=== PATIENT | female | born 1950 | race African-American/Black ===

== ENCOUNTER → 2019-11-25 09:07 | Outpatient (CLI) | payer OTHER, SELFPAY ==
--- NOTE | ~2019-11-25 | XR_ITS ---
XR lumbar spine 6V w bending 11/25/2019 10:16 Indication: Radiculopathy. Low back pain. Procedure: 7 views lumbar spine Comparison: 12/20/2018 Findings: There is loss of disc height at all lumbar levels. There is moderate-severe multilevel face t hypertrophy with grade 1 degenerative spondylolisthesis at L3-4 and grade 2 spondylolisthesis at L4 -5. No acute fracture or traumatic malalignment. No significant alteration of alignment with flexion/ extension. There is atherosclerosis of the aorta. Pedicles intact. Sacral foramen are symmetric. Ther e are cholecystectomy clips. Impression: 1: Severe lumbar spondylosis. Reviewed, dictated and finalized at location A. 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
--- NOTE | ~2019-11-25 | XR_ITS ---
XR cervical spine min 6V 11/25/2019 10:16 Indication: Radiculopathy. Neck pain. Procedure: 6 view cervical spine Comparison: 11/19/2018 Findings: Straightening of cervical lordosis. Disc narrowing is present at C5-6 and C6-7. There is de generative anterolisthesis at C3-4 and C4-5. Prominent ventral osteophytes at multiple levels. There is severe multilevel facet hypertrophy. Lung apices are normal. Odontoid process within normal limits . Impression: 1: Moderate-severe cervical spondylosis. No significant change. Reviewed, dictated and finalized at location A. [employer]OR OF [employer]ERING Impression: 1: Moderate-severe cervical spondylosis. No significant change.
== END ==
PROVIDERS: Visit Provider Nurse Practitioner Family
DX: M47.26 Other spondylosis with radiculopathy, lumbar region (principal); M47.22 Other spondylosis with radiculopathy, cervical region
CPT/HCPCS: 72052; 72114

== ENCOUNTER 2022-05-16 17:14 | Emergency (ER) | payer MEDICARE, SELFPAY ==
[2022-05-16 17:45] VITALS: BP 135/70; PULSE 107; RESP 16; TEMP 36.6; O2SAT 100
--- NOTE | 2022-05-16 17:57 | ED.GENADULT ---
HPI - General Adult General Chief complaint: Unspecified Stated complaint: hip pain Time Seen by Provider: 05/16/22 17:57 History of Present Illness HPI narrative: eTa Thornton is a 71 yo female with PMH of breast CA, high resting heart rate, HTN, who was doing doing exercises today and has L sided shooting pains into buttocks. Pain is beneficial was not able to sleep last night even with trying to elevate her leg on a pillow; she has seen a chiropractor and has taken Flexeril in the past Related Data Home Medications Medication Instructions Recorded Confirmed albuterol sulfate 90 mcg/actuation 90 mcg inhalation PRN PRN 05/16/22 05/16/22 aerosol inhaler difficulty breathing cyclobenzaprine 10 mg tablet 10 mg PO DAILY 05/16/22 05/16/22 fluoxetine 10 mg capsule 10 mg PO DAILY 05/16/22 05/16/22 fluticasone propionate 50 50 mcg intranasal DAILY 05/16/22 05/16/22 mcg/actuation nasal spray,suspension hydrochlorothiazide 25 mg tablet 25 mg PO DAILY 05/16/22 05/16/22 letrozole 2.5 mg tablet 2.5 mg PO DAILY 05/16/22 05/16/22 Allergies Allergy/AdvReac Type Severity Reaction Status Date / Time Penicillins Allergy Intermediate Rash Verified 05/16/22 17:58 ciprofloxacin AdvReac Severe Other Verified 05/16/22 18:20 Review of Systems Review of Systems: CONSTITUTIONAL: Denies fever, chills, sweats. EYES: Denies visual changes, redness, discharge. ENT: Denies rhinorrhea, congestion, sore throat, otalgia. CARDIOVASCULAR: Denies chest pain, palpitations, edema. RESPIRATORY: Denies dyspnea, wheezing, cough GASTROINTESTINAL: Denies abdominal pain, nausea, vomiting, diarrhea. GENITOURINARY: Denies dysuria, hematuria, abnormal discharge SKIN: Denies rash or itching. NEUROLOGIC: Denies numbness, or focal weakness. PSYCHIATRIC: Denies anxiety or depression. Doing exercises today and is having shooting pain down left side of buttock PMFSH Past Medical History Medical History Acute bilateral low back pain without sciatica Arthritis of facet joint of lumbar spine Hyperlipidemia, unspecified Mild intermittent asthma, uncomplicated Spinal stenosis at L4-L5 level Family History Family History Sibling Family history of malignant neoplasm of breast in first degree relative Social History Social History (System 11/12/21 @ 12:38 by Madison Dumont) Smoking status: Light tobacco smoker Second hand tobacco smoke exposure: No Alcohol intake: never Comments At time of signature, I agree with nursing past medical, surgical, social and family history. There is no relevant family history pertinent to the presenting complaint. Exam Narrative: GENERAL: This is a well-nourished, well-developed patient, in mild distress. HEAD: normocephalic, atraumatic. EYES: PERRL. Sclera clear/white. Vision is grossly intact. EARS: External ears normal, auditory canals clear and without drainage, TMs normal without perforation. Hearing grossly intact. NOSE: External nose normal without nasal discharge, nares without redness, no rhinorrhea. THROAT: Mucous membranes moist, posterior pharynx NECK: Neck supple, non-tender CARDIOVASCULAR: Regular rate and rhythm without murmurs, gallops, or rubs. RESPIRATORY: Clear to auscultation. Breath sounds equal bilaterally. No wheezes, rales, or rhonchi. GASTROINTESTINAL: Abdomen soft, non-tender, SKIN: warm, intact with no suspicious lesions or rash, good texture and turgor. NEURO: awake, alert, and oriented to person, place and time. There were no obvious focal neurologic abnormalities. Steady gait EXTREMITIES: Normal range of motion. BACK: Nontender without deformity when moves through ROM has muscle spasm that seems to originate in the pirisformis on L Course Course Emergency Course: Patient here with pain in left buttock after doing exercises today she has had a problem over the last coupl
[2022-05-16] MEDS: methylPREDNISolone ACETATE 80 MG/ML VIAL 60 MG IM (18:35)
== END 2022-05-16 19:00 | disposition home or self-care (01) ==
PROVIDERS: Emergency Provider Nurse Practitioner
DX: S76.012A Strain of muscle, fascia and tendon of left hip, initial encounter (principal); X58.XXXA Exposure to other specified factors, initial encounter; Z85.3 Personal history of malignant neoplasm of breast; E78.5 Hyperlipidemia, unspecified; M48.061 Spinal stenosis, lumbar region without neurogenic claudication; I10 Essential (primary) hypertension
CPT/HCPCS: 96372; 99213; G0463; J1040

== ENCOUNTER 2022-06-25 17:59 | Emergency (ER) | payer MEDICARE, SELFPAY ==
--- NOTE | ~2022-06-25 | XR_ITS ---
EXAMINATION: XR chest 2V 06/25/2022 18:39 INDICATION: Cough with crackles sounds. PROCEDURE: 2 view chest COMPARISON: 04/28/2006 FINDINGS: The lungs are clear. The cardiomediastinal silhouette is within normal limits. There are no pleural effusions. There is no pneumothorax suspected. There is a calcified granuloma in the lef t upper lung. Prominent right cardiophrenic angle fat pad. There are cholecystectomy clips. IMPRESSION: 1: NO ACUTE CARDIOPULMONARY DISEASE. Reviewed, dictated and finalized at location A.
--- NOTE | 2022-06-25 18:02 | ED.URI ---
HPI - URI/Sore Throat General Stated Complaint: sore throat, stuffy nose, nausea Time Seen by Provider: 06/25/22 18:25 Source: patient and RN notes reviewed Mode of arrival: ambulatory Limitations: no limitations History of Present Illness HPI Narrative: 72-year-old female with history of breast cancer presents with concern for sore throat, stuffy nose, nausea, cough, chills, body aches that started yesterday. Reports she got a flu shot on June 15, and has had her second COVID booster. She reports she has been doing salt water and aspirin gargles with intermittent relief. She denies shortness of breath, chest pain. MD elicited complaint: cough, sore throat and rhinorrhea Related Data Home Medications Medication Instructions Recorded Confirmed albuterol sulfate 90 mcg/actuation 90 mcg inhalation PRN PRN 05/16/22 05/16/22 aerosol inhaler difficulty breathing fluticasone propionate 50 50 mcg intranasal DAILY 05/16/22 05/16/22 mcg/actuation nasal spray,suspension hydrochlorothiazide 25 mg tablet 25 mg PO DAILY 05/16/22 05/16/22 letrozole 2.5 mg tablet 2.5 mg PO DAILY 05/16/22 05/16/22 cyclosporine 0.05 % eye drops in a 1 drp DIRECTED 06/25/22 06/25/22 dropperette (Restasis) Allergies Allergy/AdvReac Type Severity Reaction Status Date / Time Penicillins Allergy Intermediate Rash Verified 05/16/22 17:58 ciprofloxacin AdvReac Severe Other Verified 05/16/22 18:20 Review of Systems Review of Systems: CONSTITUTIONAL: Reports malaise, chills. Denies sweats, or fever. EYES: Denies visual changes, redness, or discharge. ENT: Reports rhinorrhea, congestion, sore throat. Denies sinus pain, otalgia CARDIOVASCULAR: Denies chest pain, palpitations, or edema. RESPIRATORY: Reports cough. Denies dyspnea. GASTROINTESTINAL: Denies abdominal pain, nausea, vomiting, diarrhea SKIN: Denies rash or itching. MUSCULOSKELETAL: Reports myalgia. NEUROLOGIC: Denies headache. All systems reviewed & are unremarkable except as noted in HPI and below PMFSH Past Medical History Medical History Acute bilateral low back pain without sciatica Arthritis of facet joint of lumbar spine Hyperlipidemia, unspecified Mild intermittent asthma, uncomplicated Spinal stenosis at L4-L5 level Family History Family History Sibling Family history of malignant neoplasm of breast in first degree relative Social History Social History (System 11/12/21 @ 12:38 by Madison Dumont) Smoking status: Light tobacco smoker Second hand tobacco smoke exposure: No Alcohol intake: never Comments At time of signature, agree with nursing past medical, surgical, social and family history. There is no relevant family history pertinent to the presenting complaint Exam Narrative: GENERAL: Nontoxic appearing and in no acute distress. HEAD: Normocephalic EYES: PERRLA, conjunctivae clear ENT: Nares clear, clear discharge. Mucous membranes moist. TM pearly elach with sharp light reflex bilaterally; no tragal tenderness. Oropharynx erythematous without lesions. Tonsils not enlarged and without exudate, no drooling, no hoarseness, no trismus, uvula midline. NECK: Supple. No lymphadenopathy CHEST: Clear to auscultation, breath sounds equal. No wheezing, rhonchi, rales, or stridor. No respiratory distress, speaks in full sentences. HEART: Regular rate and rhythm. No murmur heard. SKIN: Warm, dry, no rash. NEURO: Alert and oriented x3. PSYCH: Normal mood and affect Course Course Emergency Course: Patient is aware of diagnosis, understands and agrees to treatment plan. Anticipatory guidance given. Patient agrees to follow-up as directed and is aware of reasons to seek care at the emergency department. Portions of this record may have been created with voice recognition software Level of Care: Express Care Visit Vital Signs Vital signs: Reviewed.
[2022-06-25 18:10] VITALS: BP 131/73; PULSE 100; RESP 16; TEMP 37.3; O2SAT 100
== END 2022-06-25 19:10 | disposition home or self-care (01) ==
PROVIDERS: Emergency Provider Nurse Practitioner
DX: B34.9 Viral infection, unspecified (principal); Z20.822 Contact with and (suspected) exposure to COVID-19; E78.5 Hyperlipidemia, unspecified; Z72.0 Tobacco use
CPT/HCPCS: 71046; 87426; 87804; 99213; C9803; G0463

== ENCOUNTER 2023-11-05 08:37 | Outpatient (CLI) | payer MEDICARE, SELFPAY ==
--- NOTE | 2023-11-25 16:20 | WPDSLEEPSTUD ---
Sleep Study Date of Study: 11/05/23 Ordering Provider: Mason Escamilla DO Interpreting Physician: Carolee Thibodeaux MD Sleep Study Type: Polysomnogram Height: 1.65 m Weight: 58.967 kg Body Mass Index: 21.6 Neck Circumference (inches): 13.25 [place]: 4 Reason for Sleep Study Loud snoring, hypersomnolence Sleep History Tea Thornton is a 73-year-old woman with a long history of loud snoring. She has COPD, mild intermittent asthma, allergic rhinitis, and hypertension. She never awakens from sleep short of breath. She occasionally wakes at night with heartburn, belching or coughing.??She constantly snores, and occasional snores loudly enough that others complain. She occasionally has trouble sleeping when she has a cold. She never wakes up gasping for breath during the night. She occasionally has breathing problems at night. She rarely sweats excessively at night. She never notices her heart pounding or beating irregularly during the night. She never falls asleep during the day. She never falls asleep involuntarily, never falls asleep while driving. She never experiences loss of muscle tone with strong emotion. She never feels paralyzed on waking or falling asleep. She never experiences vivid dreams upon waking or falling asleep. She never feels afraid of going to sleep. She never has nightmares. She rarely recalls her dreams. She never has thoughts racing through her mind. She occasionally feels sad or depressed. She rarely feels anxiety. She never notices parts of her body jerk. She never during the night. She never feels crawling or aching feelings in her legs. She never feels leg pain at night. She never has morning jaw pain, although she frequently grinds her teeth at night. She rarely feels bothered by pain during the day, is rarely awakened by pain during the night. She frequently wakes up feeling stiff in the morning, occasionally wakes feeling sore or achy in the morning. She occasionally awakens with pain in her neck, spine, or joints. Normal bedtime is 10:00 p.m., falling asleep immediately, waking once at night to go to the bathroom. Sometimes, while awake, she eats crackers or grapes, and may get a drink of water. She returns to bed, wakes by 6:00 a.m.. She keeps the same schedule on weekends. She gets immediately out of bed after waking. She reports getting 4-5 hours of sleep per night. She does not generally take naps in the afternoon or evening. If she takes a short nap lasting to to 10-15 minutes it might be refreshing. She is usually drowsy for an hour after waking. She feels better in the morning compared to other times of day. Habits:??Tobacco: She smokes 5-7 cigarettes per day. Caffeine: 6 oz of coffee Mondays through Fridays. Alcohol: none Recreational substances: none PMFSH Past Medical History Medical History (Updated 11/26/23 @ 12:48 by Carolee Thibodeaux MD) Acute bilateral low back pain without sciatica Arthritis of facet joint of lumbar spine COPD (chronic obstructive pulmonary disease) Hyperlipidemia, unspecified Hypertension Mild intermittent asthma, uncomplicated Spinal stenosis at L4-L5 level Surgical History Surgical History (Updated 11/26/23 @ 12:49 by Carolee Thibodeaux MD) History of right mastectomy Family History Family History Sibling Family history of malignant neoplasm of breast in first degree relative Social History Social History Smoking status: Light tobacco smoker Second hand tobacco smoke exposure: No Alcohol intake: never Medications Home Medications Medication Instructions Recorded Confirmed Type albuterol sulfate 90 mcg/actuation 90 mcg inhalation PRN PRN 05/16/22 06/25/22 History aerosol inhaler difficulty breathing fluticasone propionate 50 50 mcg intranasal DAILY 05/16/22 06/25/22 History mcg/actuation nasal spray,suspensi
[2023-11-26 12:34] VITALS: BMI 21.6
== END 2023-11-06 07:19 | disposition home or self-care (01) ==
LOC: ANHCSM 08:38
DX: R06.83 Snoring (principal); G47.30 Sleep apnea, unspecified
CPT/HCPCS: 95810

== ENCOUNTER 2025-05-05 13:53 | Emergency (ER) | payer MEDICARE, SELFPAY ==
--- NOTE | ~2025-05-05 | XR_ITS ---
EXAMINATION: XR chest 2V Exam Date/Time: 05/05/2025 14:23 CDT HISTORY: SOB with wheezing 1x week smoker hx copd, asthma, bronchitis Comparison: 06/25/2022. RESULT: Lines, tubes, and devices: Cholecystectomy clips. Lungs and pleura: No focal consolidation, pleural effusion, or pneumothorax. Calcified left upper lore ng granuloma. Emphysematous change. Cardiomediastinal silhouette: Stable aortic ectasia and dilated central pulmonary arteries. Prominen t right cardiophrenic angle fat pad. Right diaphragm eventration. Other: No acute osseous or upper abdominal finding. IMPRESSION: No acute cardiopulmonary process. Reviewed, dictated and finalized at location K.
[2025-05-05 14:06] VITALS: BP 144/81; PULSE 101; RESP 22; TEMP 37; O2SAT 96
--- NOTE | 2025-05-05 14:17 | ED_ITS ---
HPI - General Adult General Chief complaint: Upper Respiratory Infection Stated complaint: SOB/Cough Time Seen by Provider: 05/05/25 14:17 Source: patient Mode of arrival: ambulatory Limitations: no limitations History of Present Illness HPI narrative: 74-year-old female patient presents to [facility] with complaints of shortness of breath and cough. Patient does have history of asthma and COPD. Patient states for the last week she has been using her albuterol a lot more. Patient states she typically uses about once a day during work hours and then at home using it twice a day. Patient states that she is noticing she is having trouble breathing at night and has to sleep with her head propped up and is using it more frequently. Patient does continue to smoke. Denies any fevers body aches or chills that she is aware of. Patient does take Spiriva on a daily basis as well. Patient states she has developed mild upper left chest pain at times within the last week. Related Data Home Medications ?Medication ?Instructions ?Recorded ?Confirmed ?Last Taken ?Type albuterol sulfate 90 mcg/actuation 90 mcg inhalation PRN PRN 05/16/22 06/25/22 Unknown History aerosol inhaler difficulty breathing fluticasone propionate 50 50 mcg intranasal DAILY 05/16/22 06/25/22 Unknown History mcg/actuation nasal spray,suspension hydrochlorothiazide 25 mg tablet 25 mg PO DAILY 05/16/22 06/25/22 Unknown History letrozole 2.5 mg tablet 2.5 mg PO DAILY 05/16/22 06/25/22 Unknown History cyclosporine 0.05 % eye drops in a 1 drp DIRECTED 06/25/22 06/25/22 Unknown History dropperette (Restasis) Allergies Allergy/AdvReac Type Severity Reaction Status Date / Time Penicillins Allergy Intermediate Rash Verified 05/05/25 13:54 ciprofloxacin AdvReac Severe Other Verified 05/05/25 13:54 Review of Systems Review of Systems: CONSTITUTIONAL: Denies fever, chills, or sweats. EYES: Denies visual changes, redness, or discharge. ENT: Denies rhinorrhea, congestion, sore throat, or otalgia. CARDIOVASCULAR: Denies chest pain, palpitations, or edema. RESPIRATORY: Denies cough or dyspnea. GASTROINTESTINAL: Denies abdominal pain, nausea, vomiting, or diarrhea. GENITOURINARY: Denies dysuria or hematuria. SKIN: Denies rash or itching. MUSCULOSKELETAL: Denies back pain, joint pain, or myalgia. NEUROLOGIC: Denies headache, numbness, or weakness. PSYCHIATRIC: Denies anxiety or depression. [facility] Past Medical History Medical History Hypertension COPD (chronic obstructive pulmonary disease) Spinal stenosis at L4-L5 level Mild intermittent asthma, uncomplicated Hyperlipidemia, unspecified Arthritis of facet joint of lumbar spine Acute bilateral low back pain without sciatica Surgical History Surgical History History of right mastectomy Family History Family History Sibling Family history of malignant neoplasm of breast in first degree relative Social History Social History Smoking status: Light tobacco smoker Second hand tobacco smoke exposure: No Alcohol intake: never Comments At the time of my signature I agree with nursing past medical history, surgical, social, and family history. There is no relevant family history pertinent to the presenting complaint. Exam Narrative: GENERAL: Well-appearing, well-nourished, and in no acute distress. HEAD: Normocephalic, atraumatic. EYES: PERRLA and EOMI. ENT: Nares clear, no rhinorrhea or epistaxis. Mucous membranes moist. Posterior pharynx no erythema, tonsillar enlargement, exudates or lesions present. NECK: Supple. No lymphadenopathy CHEST: Patient has some slight inspiratory and expiratory wheezing noted to the right lower lobe. Patient is talking in broken sentences but no tripoding noted. HEART: Regular rate and rhythm. No murmur heard. Normal peripheral pulses. ABDOMEN: Soft, nontender, nondistended, normal active bowel sounds. EXTREMITIES: Normal range of motion. No edema. SKIN: Warm, dry, no rash. NEURO: No focal deficits. Alert and oriented x3. Course Course Level of Care: Express Care Visit Reevaluation(s) Reevaluation #1: Re-evaluated patient patient states that she is feeling much better after receiving her breathing treatment. Notified her that her x-ray is negative for pneumonia and her swabs were negative as well EKG shows some enlargement of the heart which could be associated with some CHF she is to follow up with her primary doctor for further evaluation of this. Discussed with patient we will discharge her home with oral steroids, a refill of her albuterol inhaler and Tessalon Perles for the cough. Patient's lung sounds are improved but continues to have slight expiratory wheezing noted to bilateral lower lobes on auscultation. Date: 05/05/25 Time: 15:36 Vital Signs Vital signs: Vital Signs Temperature 37.0 C 05/05/25 14:06 Pulse Rate 101 H 05/05/25 14:06 Respiratory Rate 22 H 05/05/25 14:06 Blood Pressure 144/81 H 05/05/25 14:06 Pulse Oximetry 96 05/05/25 14:06 Oxygen Delivery Room Air 05/05/25 14:06 Temperature 37.0 C 05/05/25 14:06 Pulse Rate 101 H 05/05/25 14:06 Respiratory Rate 22 H 05/05/25 14:06 Blood Pressure 144/81 H 05/05/25 14:06 Pulse Oximetry 96 05/05/25 14:06 Oxygen Delivery Room Air 05/05/25 14:06 Vital signs reviewed. The patient has been informed that they may have pre-hypertension or Hypertension based on a BP reading in the department. I recommend that the patient call the primary care provider listed on their discharge instructions or a physician of their choice this week to arrange follow up for further evaluation of possible pre-hypertension or Hypertension Medical Decision Making MDM Narrative Medical decision making narrative: Plan care patient is to test her for COVID and influenza. Get a chest x-ray to rule out any acute lung infection that could be causing her symptoms as well as look do an EKG due to increase or shortness of breath to look for any new onset CHS or any heart issue at this time. We will also provide her breathing treatment within the clinic today to see if this improves some of her symptoms. Differential Diagnosis Differential Diagnosis: Differential diagnosis: Allergic rhinitis, chronic sinusitis, tonsillitis, acute sinusitis, infectious mononucleosis, seasonal influenza, pertussis, diphtheria, meningococcal disease, viral syndrome, viral bronchitis, RSV, COVID- 19 Vital Signs Vital Signs: Vital Signs Temperature 37.0 C 05/05/25 14:06 Pulse Rate 101 H 05/05/25 14:06 Respiratory Rate 22 H 05/05/25 14:06 Blood Pressure 144/81 H 05/05/25 14:06 Pulse Oximetry 96 05/05/25 14:06 Oxygen Delivery Room Air 05/05/25 14:06 Temperature 37.0 C 05/05/25 14:06 Pulse Rate 101 H 05/05/25 14:06 Respiratory Rate 22 H 05/05/25 14:06 Blood Pressure 144/81 H 05/05/25 14:06 Pulse Oximetry 96 05/05/25 14:06 Oxygen Delivery Room Air 05/05/25 14:06 Lab Data Labs: Lab Results 05/05/25 Range/Units 14:38 POC Influenza A Ag Negative (Negative) POC Influenza B Ag Negative (Negative) POC SARS CoV-2 Ag Negative (Negative) Imaging Data Radiologist's impression: [facility] ([facility]) [address] [place] [address] XRay Report Signed Patient: Tea Thornton : 1950 MR#: [id number] Age: 74 Acct:[id number] Loc: [facility] ADM Date: 05/05/25Attending Dr: Ordering Physician: Leticia Boyce COMMUNICATIONS ADVISOR Date of Service: 05/05/25 Procedure(s): XR chest 2V Accession Number(s): [id number] cc: BRAZING FURNACE OPERATOR PHYSICIAN; Leticia Boyce COMMUNICATIONS ADVISOR~ EXAMINATION: XR chest 2V Exam Date/Time: 05/05/2025 14:23 CDT HISTORY: SOB with wheezing 1x week smoker hx copd, asthma, bronchitis Comparison: 06/25/2022. RESULT: Lines, tubes, and devices: Cholecystectomy clips. Lungs and pleura: No focal consolidation, pleural effusion, or pneumothorax. Calcified left upper lung granuloma. Emphysematous change. Cardiomediastinal silhouette: Stable aortic ectasia and dilated central pulmonary arteries. Prominent right cardiophrenic angle fat pad. Right diaphragm eventration. Other: No acute osseous or upper abdominal finding. IMPRESSION: No acute cardiopulmonary process. Reviewed, dictated and finalized at location K. Please be advised this is a medical document. It is intended for [id number] c ommunication. It is written in medical language and may contain unfamiliar abbreviations or verbiage. Medical documents are intended to carry relevant information, facts as evident, and the clinical opinion of the practitioner at the time of the encounter. This report may have been done utilizing a voice recognition system. Attempts have been made to correct errors. However, there may be uncorrected grammatical, spelling, and recognition errors present. The file time of this note does not necessarily represent the time of service. Dictated By: Ashwin Mason MD 05/05/25 1508 Signed By: <Electronically signed by Ashwin Mason MD in OV> ECG Data EKG #1: ECG completion date: 05/05/25 ECG completion time: 14:48 Prior ECG tracings: not available for review Interpretation: Sinus rhythm. Left atrial enlargement. Left ventricle hyper for tree and ST-T change. Abnormal ECG. Unconfirmed report. The rate: 98 [place] interval: 139 QRS duration: 89 QT/QTC: 349/404 P-R-T axes: 74, 40, 0 Average RR: 611 QTC B: 446 QTC F: 411 EKG Interpretation: normal rate Critical Care Time Critical Care Time Critical Care Time: No Discharge Plan Discharge Clinical Impression: Asthma exacerbation, Acute exacerbation of chronic obstructive pulmonary disease Patient Disposition: Home Condition: Stable Instructions: Antibiotic Form, Asthma (ED) Additional Instructions: Wheezing conditions can change rapidly. He can be doing well and then have difficulty breathing only a short while later. Some things worsen wheezing or colds, smoke, pets, dust, allergies, and exercise. Follow-up with your primary care physician in the next 5-7 days. Increase fluid intake. May take Tylenol or ibuprofen as directed for fever. No smoking!! This is very important. Smokers in the shower and change clothes before entering the house. Cigarette smoke or odor is harmful to wheezing lungs.? Calling her doctor return to the emergency department if your condition worsens or: Wheezing is not better. Breathing is difficult or to fast. There are retractions (the skin between or under the ribs sucks and when breathing). Chest pain occurs. Drowsy or sleepy. Pale color or blue/leach color is seen in the lips or fingernails (call 911).? Patient Language: Arabic Prescriptions: New benzonatate 200 mg capsule 200 mg PO TID PRN (Reason: cough) 10 Days Qty: 30 0RF prednisone 20 mg tablet 40 mg PO DAILY 5 Days Qty: 10 0RF albuterol sulfate [Ventolin HFA] 90 mcg/actuation HFA aerosol inhaler 2 puff INHALATION .Q4 hours PRN (Reason: cough) Qty: 18 0RF No Action cyclosporine [Restasis] 0.05 % dropperette 1 drp DIRECTED hydrochlorothiazide 25 mg tablet 25 mg PO DAILY letrozole 2.5 mg tablet 2.5 mg PO DAILY albuterol sulfate 90 mcg/actuation HFA aerosol inhaler 90 mcg INHALATION PRN PRN (Reason: difficulty breathing) fluticasone propionate 50 mcg/actuation spray,suspension 50 mcg INTRANASAL DAILY Follow-up/Referrals: PHYSICIAN,BRAZING FURNACE OPERATOR [Primary Care Provider] - Time of Disposition: 15:34
--- NOTE | 2025-05-05 14:28 | ECG_ITS ---
Test Date: 2025-05-05 14:49:35 Measurements Intervals [place] Rate: 95 P: 73 [place]: 129 QRS: 35 QRSD: 87 T: 13 QT: 357 QTc: 450 Interpretive Statements SINUS RHYTHM WITH OCCASIONAL VENTRICULAR PREMATURE COMPLEXES LEFT ATRIAL ENLARGEMENT DELAYED PRECORDIAL R/S TRANSITION LEFT VENTRICULAR HYPERTROPHY WITH ST-T CHANGE NONSPECIFIC ST & T-WAVE ABNORMALITY- INFERIOR LEADS BASELINE ARTIFACT- I, II, III, AVR, AVL, AVF, V1-V6 BORDERLINE ECG No previous ECG available for comparison Electronically Signed On 05-05-2025 14:50:29 CDT by Domingo Madrid D.O.
[2025-05-05 14:39] LABS: EDCOVIDSCREEN Negative (Negative); EDINFLUASCREEN Negative (Negative); EDINFLUBSCREEN Negative (Negative)
[2025-05-05] MEDS: IPRATROPIUM 0.5 MG/ALBUTEROL SULFATE 2.5 MG AMPUL.NEB 3 ML INHALATION (14:56)
--- NOTE | 2025-05-06 11:17 | ECG_ITS ---
Test Date: 2025-05-05 14:48:24 Measurements Intervals [place] Rate: 98 P: 74 [place]: 139 QRS: 40 QRSD: 89 T: 0 QT: 349 QTc: 446 Interpretive Statements SINUS RHYTHM LEFT ATRIAL ENLARGEMENT LEFT VENTRICULAR HYPERTROPHY AND ST-T CHANGE BORDERLINE ST-T WAVE ABNORMALITY- INFERIOR LEADS BASELINE ARTIFACT- II, III, AVL, AVF, V4-V6 BORDERLINE ECG No previous ECG available for comparison Electronically Signed On 05-06-2025 16:11:39 CDT by Domingo Madrid D.O.
--- NOTE | 2025-05-06 11:23 | PC.NURSE ---
05/06/2023 1117- Office called by Cardiology dept,brenna there was NO EKG ORDER in patient chart. Office can see the order from 05/05/[address] the order as asked. This may be a duplicate order as they insiosted NO order is available.
== END 2025-05-05 15:45 | disposition home or self-care (01) ==
PROVIDERS: Emergency Provider Nurse Practitioner Family
DX: J45.901 Unspecified asthma with (acute) exacerbation (principal); J44.1 Chronic obstructive pulmonary disease with (acute) exacerbation; Z20.822 Contact with and (suspected) exposure to COVID-19; F17.200 Nicotine dependence, unspecified, uncomplicated; I10 Essential (primary) hypertension; M48.061 Spinal stenosis, lumbar region without neurogenic claudication; E78.5 Hyperlipidemia, unspecified; Z90.11 Acquired absence of right breast and nipple
CPT/HCPCS: 71046; 87426; 87804; 93005; 99213; G0463